=== PATIENT | female | born 1950 | race Two or more races ===

== ENCOUNTER 2022-04-01 06:16 | Day surgery (SDC) | payer OTHER, MEDICAID ==
[~2022-04-01] VITALS: Ht 142.2 cm; Wt 68.0 kg
[2022-04-01] VITALS (7 sets, daily range): BP systolic 126–152; BP diastolic 70–92
[~2022-04-01 06:16] MED LIST: ACET-1080 PO; AMLO-489 PO; CELE100C82 PO; CHOL100079 PO; DISO100C4 PO; GABA100C9 PO; LOSA25TA38 PO; METO25TA5 PO; OMEP-434 PO; OXYB10TA14 PO; POM
[2022-04-01] MEDS ORDERED: fentaNYL CITRATE 100 MCG/2 ML VL ONE (07:34)
[2022-04-01] MEDS ORDERED: MIDAZOLAM HCL 2MG/2ML 2ml VIAL (1mg/ml) ONE (07:35)
[2022-04-01] MEDS ORDERED: LIDOCAINE 2%HCL (LOCAL ANESTH.) INJ 20ML MDV ONE (07:35)
[2022-04-01] MEDS ORDERED: IODIXANOL 320MG/ML 100ML BTL IV ONE (07:35)
[2022-04-01] MEDS ORDERED: SODIUM CHL 0.9% 0 ML ONE (07:36)
[2022-04-01] MEDS ORDERED: ANGIOMAX 250 MG VIAL IV ONE (07:36)
[2022-04-01] MEDS ORDERED: HEPARIN SODIUM (PORCINE) 5000 UNITS/ML 1ML VIAL ONE (07:39)
[2022-04-01] MEDS ORDERED: VERAPAMIL 2.5MG/ML INJ 2ML VIAL IV ONE (07:39)
== END 2022-04-01 10:58 | disposition home or self-care (01) ==
LOC: CATH 06:16
PROVIDERS: ATTEND Internal Medicine Cardiovascular Disease
DX: I25.10 Atherosclerotic heart disease of native coronary artery without angina pectoris (principal); I42.1 Obstructive hypertrophic cardiomyopathy; R94.39 Abnormal result of other cardiovascular function study; R06.09 Other forms of dyspnea; R07.89 Other chest pain; J44.9 Chronic obstructive pulmonary disease, unspecified; I08.3 Combined rheumatic disorders of mitral, aortic and tricuspid valves; Z79.899 Other long term (current) drug therapy; Z79.01 Long term (current) use of anticoagulants; Z98.890 Other specified postprocedural states; Z20.822 Contact with and (suspected) exposure to COVID-19
CPT/HCPCS: 93458; C1887; C1894; J1644; J2250; J3010; Q9967; U0003; 99152; 99153

== ENCOUNTER 2025-02-11 09:32 | Inpatient (IN) | payer OTHER, MEDICAID ==
[2025-02-11] VITALS (8 sets, daily range): BP systolic 151; BP diastolic 112; PULSE 94–110; RESP 17–20; O2SAT 9–99
[~2025-02-11] VITALS: Ht 121.9 cm; Wt 60.0 kg
[~2025-02-11 09:32] MED LIST changes: -AMLO-489 PO; +AMLO1TAB22 PO; +GABA-1308 PO; -GABA100C9 PO; +LOSA-533 PO; -LOSA25TA38 PO
--- NOTE | 2025-02-11 09:59 | ED.PDOC ---
SOB-HPI HPI Comments This is a 74 year old female MAEVEA presenting to the ED with chief complaint of SOB. Patient relays that she has been experiencing constant SOB with associated dry cough, nausea, vomiting, and bilateral leg swelling for the past 3 months. Patient relays that she visited today, but had 911 called due to the symptoms she was presenting with. Patient denies any abdominal pain, fever, chills, chest pain, diarrhea, headache, or syncope. 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 Family History Family History: Reviewed,noncontributory to illness, Family hx of heart magdalena Social History Smoker: Non-Smoker Alcohol: Denies ETOH Use Drugs: Denies Drug Use Lives In: Home Constitutional: denies: chills, diaphoresis, fatigue, fever, malaise, sweats, weakness, others EENTM: denies: blurred vision, double vision, ear bleeding, ear discharge, ear drainage, ear pain, ear ringing, eye pain, eye redness, hearing loss, mouth pain, mouth swelling, nasal discharge, nose bleeding, nose congestion, nose pain, photophobia, tearing, throat pain, throat swelling, voice changes, others Respiratory: reports: cough, shortness of breath; denies: hemoptysis, orthopnea, SOB at rest, SOB with excertion, stridor, wheezing, others Cardiovascular: reports: edema; denies: chest pain, dizzy spells, diaphoresis, Dyspnea on exertion, irregular heart beat, left arm pain, lightheadedness, palpitations, PND, syncope, others Gastrointestinal: reports: nausea, vomiting; denies: abdomen distended, abdominal pain, blood streaked bowels, constipated, diarrhea, dysphagia, difficulty swallowing, hematemesis, melena, poor appetite, poor fluid intake, rectal bleeding, rectal pain, others Genitourinary: denies: abnormal vagina bleeding, burning, dyspareunia, dysuria, flank pain, frequency, hematuria, incontinence, pain, , vagina discharge, urgency, others Neurological: denies: dizziness, fainting, headache, left sided numbness, left sided weakness, numbness, paresthesia, pre-existing deficit, right sided numbness, right sided weakness, seizure, speech problems, tingling, tremors, weakness, others Musculoskeletal: denies: back pain, gout, joint pain, joint swelling, muscle pain, muscle stiffness, neck pain, others Integumetry: denies: bruises, change in color, change in hair/nails, dryness, laceration, lesions, lumps, rash, wounds, others Allergic/Immunocompromised: denies: Difficulty Healing, Frequent Infections, Hives, Itching, others Hematologic/Lymphatic: denies: anemia, blood clots, easy bleeding, easy bruising, swollen glands, others Endocrine: denies: excessive hunger, excessive sweating, excessive thirst, excessive urination, flushing, intolerance to cold, intolerance to heat, unexpla ined weight gain, unexplained weight loss, others Psychiatric: denies: anxiety, bipolar disorder, depression, hopeless, panic disorder, schizophrenia, sleepless, suicidal, others All Other Systems: Reviewed and Negative Physical Exam General Appearance: Moderate Distress HEENT: Normal ENT Inspection, Pharynx Normal, TMs Normal Neck: Full Range of Motion, Non-Tender, Normal, Normal Inspection Respiratory: Chest Non-Tender, Decreased Breath Sounds, No Accessory Muscle Use, Respiratory Distress, Wheezing Cardiovascular: No Edema, No JVD, No Murmur, No Gallop, Normal Peripheral Pulses, Regular Rate/Rhythm Breast Exam: Deferred Gastrointestinal: No Organomegaly, Non Tender, No Pulsatile Mass, Normal Bowel Sounds, Soft Genitalia: Deferred Pelvic: Deferred Rectal: Deferred Extremities: No calf tenderness, Normal capillary refill, Normal inspection, Normal range of motion, Non-tender, No pedal edema Musculoskeletal : Apperance: Normal Neurologic: Alert, development architect II-XII nml as Tested, No Motor Deficits, Normal Affect, Normal Mood, No Sensory Deficits Cerebellar Function: Normal Reflexes: Normal Skin: Dry, Normal Color, Warm Lymphatic: No Adenopathy EKG EKG : Pulse Rate (adult): 108 [address]: Normal Cardiac Rhythm: Afib Block: None Hypertrophy: None ST: Normal Was a procedure done? Was a procedure done?: No Differential Dx Differential Diagnosis: Asthma, Bronchitis, CHF, COPD, Pneumonia X-Ray, Labs, Meds, VS Vital Signs Date Time Temp Pulse Resp B/P (MAP) Pulse Ox O2 Delivery O2 Flow Rate FiO2 02/11/25 11:29 110 17 98 Nasal Cannula* 2 28 02/11/25 10:55 110 17 130/61 (84) 92 02/11/25 10:42 20 97 Nasal Cannula* 2 02/11/25 09:59 108 02/11/25 09:44 98.6 123 20 122/66 (84) 92 98.6 02/11/25 09:40 98.6 123 18 122/66 92 98.6 02/11/25 09:34 108 Lab Test 02/11/25 11:23 Range/Units White Blood Count 16.6 H 4.4-10.8 10^3/uL Red Blood Count 4.28 4.0-5.20 10^6/uL Hemoglobin 12.4 12.2-16.2 g/dL Hematocrit 38.7 36.0-46.0 % Mean Corpuscular Volume 90.6 80.0-100.0 fL Mean Corpuscular Hemoglobin 29.0 28.0-32.0 pg Mean Corpuscular Hemoglobin Concent 32.0 32.0-36.0 g/dL Red Cell Distribution Width 15.6 H 11.8-14.3 % Platelet Count 224 140-450 10^3/uL Mean Platelet Volume 10.2 6.9-10.8 fL Neutrophils (%) (Auto) 80.4 H 37.0-80.0 % Lymphocytes (%) (Auto) 12.1 10.0-50.0 % Monocytes (%) (Auto) 7.4 0.0-12.0 % Eosinophils (%) (Auto) 0.0 0.0-7.0 % Basophils (%) (Auto) 0.1 0.0-2.0 % Neutrophils # (Auto) 13.3 H 1.6-8.6 10 ^3/uL Lymphocytes # (Auto) 2.0 0.4-5.4 10 ^3/uL Monocytes # (Auto) 1.2 0-1.3 10 ^3/uL Eosinophils # (Auto) 0 0-0.8 10 ^3/uL Basophils # (Auto) 0 0-0.2 10 ^3/uL Nucleated Red Blood Cells 0.0 % Sodium Level 143 136-145 mmol/L Potassium Level 4.4 3.5-5.1 mmol/L Chloride Level 109 H 98-107 mmol/L Carbon Dioxide Level 24 20-31 mmol/L Anion Gap 10 5-15 Blood Urea Nitrogen Pending Creatinine Pending Glomerular Filtration Rate Calc Pending BUN/Creatinine Ratio Pending Serum Glucose Pending Calcium Level 8.4 L 8.7-10.4 mg/dL B-Type Natriuretic Peptide Pending Current Medications Medications (Trade) Dose Ordered Sig/Diamond Route Start Time Stop Time Status Last Admin Methylprednisolone Sodium Succinate (Solu Medrol) 125 mg ONCE ONCE IV 02/11/25 10:00 02/11/25 10:05 DC 02/11/25 10:35 Ipratropium [place] (Atrovent Medneb) 1 mg ONCE ONCE N 02/11/25 10:00 02/11/25 10:06 DC 02/11/25 10:42 Albuterol (Ventolin Medneb) 20 mg ONCE ONCE N 02/11/25 10:00 02/11/25 10:06 DC 02/11/25 10:42 IV Hep-Lock was established The patient was given Solu-Medrol 125 mg IV push The patient was given a continuous breathing treatment of albuterol and Atrovent. The patient's CBC shows an elevated white blood cell count of 16.6 The rest of the CBC is within normal limits The chemistry panel is within normal limits. The patient's chest x-ray shows: IMPRESSION: Small right pleural effusion. Cardiomegaly with pulmonary vascular congestion. The BNP is pending The patient is admitted at this time Images Reviewed?: Images reviewed and evaluated by me Time of 1ST Reevaluation: 11:44 Reevaluation 1ST: Unchanged Patient Education/Counseling: Diagnosis, Treatment, Prognosis Family Education/Counseling: No Family Present SEPSIS Sepsis Screen Date sepsis recognized/suspect: Feb 11, 2025 Time Sepsis recognized/suspect: 941 Recent Procedure: No On Antibiotic Therapy: Yes (ROCEPHIN) Respiratory Rate >20: No Heart Rate >90: Yes Temp<36 C (96.8 F) or >38.3 C: No SBP <90 or MAP <65 mmHG: No New Acute Mental Status Change: No Is the patient on CPAP, BIPAP,: No Physician Orders Electrocardigram (02/11/25 09:37) Electrocardigram (02/11/25 10:37) Electrocardigram (02/11/25 12:37) B-Type Natriuretic Peptide (02/11/25 09:57) Med Neb Initial Treatment (02/11/25 09:57) Heplock Iv (02/11/25 09:57) Pulse Oximetry (02/11/25 09:57) Manager Bar (02/11/25 09:57) Blood Pressure (02/11/25 09:57) Chest Two Views Routine (02/11/25 09:57) Basic Metabolic Panel (02/11/25 09:57) Covid19 Antigen Sasha (02/11/25 ) Rapid Influenza A&B (02/11/25 09:57) Vital Signs Date Time Temp Pulse Resp B/P (MAP) Pulse Ox O2 Delivery O2 Flow Rate FiO2 02/11/25 11:29 110 17 98 Nasal Cannula* 2 28 02/11/25 10:55 110 17 130/61 (84) 92 02/11/25 10:42 20 97 Nasal Cannula* 2 02/11/25 09:59 108 02/11/25 09:44 98.6 123 20 122/66 (84) 92 98.6 02/11/25 09:40 98.6 123 18 122/66 92 98.6 02/11/25 09:34 108 Laboratory Tests Test 02/11/25 11:23 White Blood Count 16.6 10^3/uL (4.4-10.8) H Medications Medications Dose Ordered Sig/Diamond Route Start Time Stop Time Status Last Admin Dose Admin Albuterol 20 mg ONCE ONCE N 02/11/25 10:00 02/11/25 10:06 DC 02/11/25 10:42 Ipratropium [place] 1 mg ONCE ONCE N 02/11/25 10:00 02/11/25 10:06 DC 02/11/25 10:42 Methylprednisolone Sodium Succinate 125 mg ONCE ONCE IV 02/11/25 10:00 02/11/25 10:05 DC 02/11/25 10:35 Departure 1 Departure Time of Disposition: 11:45 Impression: Primary Impression: Pleural effusion, right Additional Impressions: COPD exacerbation Pulmonary vascular congestion Disposition: ADMITTED INPATIENT Admit to: Tele Condition: Fair Critical Care Note Critical Care Time?: Yes (45 min-critical care time only) Stability Stability form required: Yes Unstable for transfer: Telemetry monitoring (Telemetry monitoring required), ED Physician Assesment (Clinical assesment) Heart Score Heart Score: Heart Score Response (Comments) Value History Highly Suspicious 2 EKG Repolarization Disturb 1 Age >65 2 Risk Factors >3 or Hx ASHD 2 Troponin Normal limit 0 Total 7 I personally scribed for REECE MAHARAJ MD ([email or web address]) on 02/11/25 at 09:59. Electronically submitted by Nathan Lares ([email or web address]). REECE MAHARAJ MD Feb 11, 2025 09:59
[2025-02-11] MEDS: methylPREDNISolone SOD SUCC 125 MG/2 ML VL IV ONE (10:35)
[2025-02-11] MEDS: IPRATROPIUM BROM 0.5 MG/2.5ML INH SOL HHN ONE (10:42)
[2025-02-11] MEDS: ALBUTEROL SULF 2.5 MG/0.5ML(0.5%) NEB SOLN HHN ONE (10:42)
--- NOTE | 2025-02-11 10:43 | DVH ---
XY CHEST TWO VIEWS ROUTINE, HISTORY: sob COMPARISON: XR CHEST 2 VIEW on DOS: 01/02/25, CT CHEST W on DOS: 12/24/24, XR CHEST 2 VIEW on DOS: 12/24 XR CHEST 2 VIEW on DOS: 01/02/25, CT CHEST W on DOS: 12/24/24, XR CHEST 2 VIEW on DOS: 12/24/24 TECHNICAL DATA: 1 view of the chest was obtained. FINDINGS: Lines and tubes: None Cardiomediastinal silhouette: prominent Pulmonary vasculature: prominent Lung expansion: low Lung airspace: normal Lung interstitium: normal Pleura: Small right pleural effusion. Pneumothorax: no Bones: Unremarkable Other: no IMPRESSION: Small right pleural effusion. Cardiomegaly with pulmonary vascular congestion.
[2025-02-11 11:31] LABS: Hematocrit 38.7 % (36.0-46.0); Hemoglobin 12.4 g/dL (12.2-16.2); Mean Corpuscular Hemoglobin 29.0 pg (28.0-32.0); Mean Corpuscular Volume 90.6 fL (80.0-100.0); Nucleated Red Blood Cells % 0.0 %
[2025-02-11 11:40] LABS: Anion Gap 10 (5-15); Carbon Dioxide 24 mmol/L (20-31); Potassium 4.4 mmol/L (3.5-5.1); Sodium 143 mmol/L (136-145)
[2025-02-11 11:42] LABS: Calcium 8.4 mg/dL (8.7-10.4); Chloride 109 mmol/L (98-107)
[2025-02-11 11:46] LABS: BUN/Creatinine Ratio 18.7 (10.0-20.0); Blood Urea Nitrogen 14 mg/dL (9-23)
[2025-02-11 11:52] LABS: Glucose 121 mg/dL (74-106)
[2025-02-11] MEDS: AMIODARONE HCL (50 MG/ ML) 3 ML VIAL IV ONE (12:14)
[2025-02-11] MEDS: dilTIAZem 25 MG/5 ML VIAL IV ONE (12:22)
[2025-02-11 12:35] LABS: COVID19 ANTIGEN SOFIA FIA NEGATIVE (NEGATIVE)
[2025-02-11] MEDS: DIGOXIN (250MCG/ML) 2 ML AMPULE IV ONE (14:36)
[2025-02-11 16:27] LABS: Base Excess -9.5 mmol/L (-2.0-3.0)
[2025-02-11] MEDS ORDERED: LEVALBUTEROL HCL 1.25 MG/3 ML NEB NEB ONE (16:30)
[2025-02-11] MEDS: LEVALBUTEROL HCL 1.25 MG/3 ML NEB ONE (16:57)
[2025-02-11] MEDS ORDERED: HYDROcodone-ACET 5/325MG TAB PO PRN (17:15)
[2025-02-11] MEDS ORDERED: MORPHINE SULFATE INJ 2 MG/ml SYRG IV PRN ×2 (17:15)
[2025-02-11] MEDS ORDERED: ONDANSETRON HCL 4 MG/2 ML VIAL IV PRN (17:15)
[2025-02-11] MEDS ORDERED: ACETAMINOPHEN 325 MG TAB PO PRN (17:15)
[2025-02-11] MEDS ORDERED: NITROGLYCERIN 0.4 MG SL TAB SL PRN (17:15)
[2025-02-11] MEDS: ENOXAPARIN SOD 60 MG/0.6 ML SYRINGE SC SCH (18:05)
[2025-02-11] MEDS: PIPERACILLIN-TAZOB 3.375GM 100 ML IV ONE (18:05)
[2025-02-11] MEDS: FUROSEMIDE 20 MG/2 ML VIAL IV SCH (18:07)
[2025-02-11] MEDS: IPRATROPIUM BROM 0.5 MG/2.5ML INH SOL NEB SCH (18:23)
[2025-02-11] MEDS: ALBUTEROL SULF 2.5 MG/0.5ML(0.5%) NEB SOLN NEB SCH (18:24)
[2025-02-11 21:11] LABS: Urine Protein, UAD TRACE (Negative)
[2025-02-11] MEDS: METOPROLOL TARTRATE 25 MG TAB PO SCH (22:00)
--- NOTE | 2025-02-11 23:07 | DVHINCON2 ---
Date of service: Feb 11, [address] De La Fuente Reason for Consultation Acute on chronic hypoxic respiratory failure, COPD exacerbation, and pleural effusion History of Present Illness A 74-year-old woman with past medical history of COPD and hypertension who presents to ED today with complaints of increased shortness of breath. Patient additionally c/o nausea, vomiting, and bilateral leg swelling worsening over the previous 3 months. On arrival to the emergency department, patient is noted to be in AFib with RVR. WBC 16.6, H&H 12.4/30.7, PLT 224. Na 143, K4.4, BUN 14, creatinine 0.75, BNP 521. Viral swabs negative. UA negative. CXR showed small right pleural effusion and cardiomegaly with pulmonary vascular congestion. While in the emergency department patient had a hypoxic episode with oxygen saturation staying in the high 70s, prompting the use of BiPAP. Patient was admitted for further care. Pulmonary consultation is requested for evaluation and management d/t acute on chronic hypoxic respiratory failure, COPD exacerbation and pleural effusion. Review of Systems: 14-point review of systems negative unless otherwise noted above. Past Medical History: COPD and hypertension Past Surgical History: None Medications: Reviewed. Allergies: No known drug allergies. Family History: No family history of premature CAD. No family history of lung disorders. Social History: Nonsmoker. No alcohol or illicit drug use. Allergies: Coded Allergies: NO KNOWN ALLERGIES (Unverified , 02/11/25) Home Meds Reported Medications Patients Own Medication (PATIENTS OWN MEDICATION) . PTS OWN MED-OBTAIN FROM PT AND SEND TO RX DRUG: FREQ: RX# EXP: DATE DISP: TECH: RPH: 03/30/22 Celecoxib (Celebrex) 100 Mg Cap, 100 MG PO DAILY for PAIN, MG 03/30/22 Oxybutynin Chloride (Ditropan Xl) 10 Mg Tab, 10 MG PO DAILY for HYPERACTIVE BLADDER, TAB 03/30/22 Cholecalciferol (VITAMIN D3) 1,000 Unit Chw, 1000 UNIT PO DAILY for SUPPLEMENT, TAB.CHEW 03/30/22 Disopyramide Phosphate (Disopyramide Phosphate) 100 Mg Cap, 100 MG PO DAILY for ARRYTHMIA, CAP 03/30/22 Acetaminophen (Tylenol 8 Hour Arthritis) 650 Mg Tab, 1300 MG PO DAILY for ATHRITIS, TAB 03/30/22 Patients Own Medication (PATIENTS OWN MEDICATION) ., for ALLERGIES PTS OWN MED-OBTAIN FROM PT AND SEND TO RX DRUG: FREQ: RX# EXP: DATE DISP: TECH: RPH: 03/30/22 Gabapentin (Gabapentin) 100 Mg Cap, 100 MG PO BID for NEUROPATHY, MG 03/30/22 Metoprolol Tartrate (Metoprolol Tartrate) 25 Mg Tab, 25 MG PO DAILY for HTN for 30 Days, MG 03/30/22 Amlodipine Besylate (Amlodipine Besylate) 5 Mg Tab, 5 MG PO DAILY for HTN, MG 03/30/22 Losartan Potassium (Losartan Potassium) 25 Mg Tab, 25 MG PO DAILY for HTN for 30 Days, MG 03/30/22 Omeprazole Magnesium (Omeprazole) 20 Mg Tab, 40 MG PO DAILY for GERD, TAB 03/30/22 Current Medications Current Medications Medications (Trade) Dose Ordered Sig/Diamond Route PRN Reason Start Time Stop Time Status Last Admin Acetaminophen/ Hydrocodone Bitart (Eastern 5/325MG Tab) 1 tab Q4HP PRN PO MODERATE PAIN (4-6 PAIN SCALE) 02/11/25 17:15 Ondansetron HCl (Zofran) 4 mg Q4HP PRN IV NAUSEA / VOMITING 02/11/25 17:15 Acetaminophen (Tylenol Tablet) 650 mg Q6HP PRN PO PAIN SCALE 1-3 OR TEMP>100.4 02/11/25 17:15 Morphine Sulfate 2 mg Q4HPRN PRN IV SEVERE PAIN (7-10 PAIN SCALE) 02/11/25 17:15 Nitroglycerin (Ntrostat Sublingual) 0.4 mg Q5MINP PRN SL FOR CHEST PAIN 02/11/25 17:15 Morphine Sulfate 2 mg Q30M PRN IV FOR CHEST PAIN 02/11/25 17:15 Metoprolol Tartrate (Lopressor Tablet) 25 mg BID PO 02/11/25 22:00 02/11/25 22:00 Enoxaparin Sodium (Lovenox) 60 mg Q12HR SC 02/11/25 17:32 02/11/25 18:05 Piperacillin Sod/ Tazobactam Sod 100 ml @ 25 mls/hr Q8HR IV 02/12/25 00:00 Albuterol (Ventolin Medneb) 2.5 mg Q4HWA NEB 02/11/25 18:00 02/11/25 22:37 Ipratropium [place] (Atrovent Medneb) 0.5 mg Q4HWA NEB 02/11/25 18:00 02/11/25 22:36 Furosemide (Lasix Injection) 20 mg BIDD IV 02/11/25 18:00 02/11/25 18:07 Vital Signs Vital Signs Date Time Temp Pulse Resp B/P (MAP) Pulse Ox O2 Delivery O2 Flow Rate FiO2 02/11/25 22:25 109 92 Nasal BiPAP Mask 100 02/11/25 22:10 20 02/11/25 22:00 155/56 02/11/25 20:40 2 02/11/25 19:59 98.4 98.4 Physical Exam Gen.: Patient lying in bed in no apparent distress. On supplemental oxygen. Head: Normocephalic, atraumatic. Eyes: EOMI/PERRLA. Ears: Normal hearing. Normal anatomy. Neck/trachea: Trachea midline, supple. Nose: Normal external anatomy. Mouth: Moist mucous membranes. Chest: Decreased air entry bilaterally. No wheezing or rhonchi. Cardiovascular: Positive S1, positive S2. Regular rate and rhythm. Abdomen: Positive bowel sounds in all 4 quadrants. Soft, non-tender, non- distended. : Deferred. Rectal: Deferred. Skin: Warm, dry. Intact. Extremities: 2+ radial pulses bilaterally. No lower extremity edema. Neuro: Awake, alert, oriented x3. No gross motor or sensory deficits. Cranial nerves II through XII intact. Gait not assessed. Labs/Diagnostic Data Labs Test 02/11/25 16:20 02/11/25 11:23 02/11/25 10:55 02/11/25 10:31 Range/Units Blood Gas Specimen Type Arterial Blood Gas Sample Site Right radial Blood Gas Patient Temperature 37.0 Arterial Blood Date Drawn [id number] Arterial Blood pH 7.333 L 7.350-7.450 Arterial Blood Partial Pressure CO2 28.7 L 32.0-45.0 mmHg Arterial Blood Partial Pressure O2 133.2 H 83.0-108.0 mmHg Arterial Blood HCO3 14.9 L 21.0-28.0 mmol/L Arterial Blood Oxygen Saturation 99.0 H 94.0-98.0 % Arterial Blood Base Excess -9.5 L -2.0-3.0 mmol/L Arterial Blood Oxyhemoglobin 97.6 94.0-98.0 % Arterial Blood Carboxyhemoglobin 1.1 0.5-1.5 % Arterial Blood Methemoglobin 0.3 0.0-1.5 % Vince Test Yes Blood Gas Total Hemoglobin 13.80 12.0-16.0 g/dL Blood Gas Liter Flow 6.00 Blood Gas Modality Nasal cannula FiO2 % 44.0 White Blood Count 16.6 H 4.4-10.8 10^3/uL Red Blood Count 4.28 4.0-5.20 10^6/uL Hemoglobin 12.4 12.2-16.2 g/dL Hematocrit 38.7 36.0-46.0 % Mean Corpuscular Volume 90.6 80.0-100.0 fL Mean Corpuscular Hemoglobin 29.0 28.0-32.0 pg Mean Corpuscular Hemoglobin Concent 32.0 32.0-36.0 g/dL Red Cell Distribution Width 15.6 H 11.8-14.3 % Platelet Count 224 140-450 10^3/uL Mean Platelet Volume 10.2 6.9-10.8 fL Neutrophils (%) (Auto) 80.4 H 37.0-80.0 % Lymphocytes (%) (Auto) 12.1 10.0-50.0 % Monocytes (%) (Auto) 7.4 0.0-12.0 % Eosinophils (%) (Auto) 0.0 0.0-7.0 % Basophils (%) (Auto) 0.1 0.0-2.0 % Neutrophils # (Auto) 13.3 H 1.6-8.6 10 ^3/uL Lymphocytes # (Auto) 2.0 0.4-5.4 10 ^3/uL Monocytes # (Auto) 1.2 0-1.3 10 ^3/uL Eosinophils # (Auto) 0 0-0.8 10 ^3/uL Basophils # (Auto) 0 0-0.2 10 ^3/uL Nucleated Red Blood Cells 0.0 % Sodium Level 143 136-145 mmol/L Potassium Level 4.4 3.5-5.1 mmol/L Chloride Level 109 H 98-107 mmol/L Carbon Dioxide Level 24 20-31 mmol/L Anion Gap 10 5-15 Blood Urea Nitrogen 14 9-23 mg/dL Creatinine 0.75 0.550-1.02 mg/dL Glomerular Filtration Rate Calc 85 >90 mL/min BUN/Creatinine Ratio 18.7 10.0-20.0 Serum Glucose 121 H 74-106 mg/dL Calcium Level 8.4 L 8.7-10.4 mg/dL B-Type Natriuretic Peptide 521.10 0-100 pg/mL Influenza Type A Antigen Negative Negative Influenza Type B Antigen Negative Negative SARS-CoV-2 Antigen (Rapid) Negative NEGATIVE Urine Color Yellow Yellow Urine Clarity Clear Clear Urine pH 5.5 5.0-9.0 Urine Specific [place] 1.026 1.001-1.035 Urine Protein Trace H Negative Urine Ketones Negative Negative Urine Blood Negative Negative /uL Urine Nitrite Negative Negative Urine Bilirubin Negative Negative Urine Urobilinogen Normal Negative mg/dL Urine Leukocyte Esterase Negative Negative /uL Urine RBC 1 0 - 4 /hpf Urine Microscopic WBC 2 0-5 /HPF Urine Squamous Epithelial Cells Few <5 /hpf Urine Bacteria None seen None Seen /hpf Urine Hyaline Casts Few 0 - 2 /lpf Urine Mucus Few None Seen Urine Glucose Normal Normal mg/dL Assessment Impression: Acute on chronic hypoxic respiratory failure Acute COPD exacerbation Acute CHF exacerbation Pleural effusion, right Atelectasis Pulmonary vascular congestion Leukocytosis Plan: Supplemental oxygen Titrate to keep O2 sats above 92%. CXR reviewed, demonstrates small right pleural effusion. Cardiomegaly with pulmonary vascular congestion. Continue bronchodilators. Continue antibiotics Monitor WBC Incentive spirometry for atelectasis Follow up Cardiology recommendations Blood pressure control Maintain euvolemia Monitor renal function. Monitor electrolytes. Supplement as necessary. Monitor ins and outs. DVT prophylaxis - Lovenox SC. Prognosis: Poor given patient's multiple co-morbidities. Rest of plan per hospitalist and other consultants. Thank you, Dr. De La Fuente, for allowing me to participate in this patient's care. Further recommendations will depend on the patient's clinical course. Please do not hesitate to contact me if you have any questions or concerns. This medical document was created using an electronic medical record system with [employer] system. Although these documentations are being carefully reviewed, there may still be some phonetic and typographical changes. The errors are purely typographical, due to imperfection on the software program, and do not reflect any compromise in the patient's medical care. Plan discussed with: Other (RN/Dr. De La Fuente) PAPO PALOMINO MD Feb 11, 2025 23:07
[2025-02-11] MEDS: LEVALBUTEROL HCL 1.25 MG/3 ML NEB NEB ONE (23:21)
[2025-02-12] VITALS (13 sets, daily range): PULSE 65–96; RESP 16–28; O2SAT 94–100
[2025-02-12] MEDS: PIPERACILLIN-TAZOB 3.375GM 100 ML IV SCH
--- NOTE | 2025-02-12 01:11 | DVHHP2 ---
History of Present Illness Reason for Visit: Shortness of breath History of Present Illness 74-year-old female with past medical history of COPD, hypertension presents with complaints increased shortness of breath. Also endorses nausea, vomiting, bilateral leg swelling worsening over the previous 3 months. On arrival to the emergency department patient is noted to be in AFib RVR. W60.6, H&H 12.4/30.7, PLT 224. Na 143, K4.4, BUN 14, creatinine 0.75, BNP 521. Viral swabs negative. UA negative. CXR interpreted per the radiologist read small right pleural effusion. Cardiomegaly with pulmonary vascular congestion. As such while the patient was in the emergency department she did begin to experience a hypoxic episode with oxygen saturation staying in the high 70s, prompting the use of BiPAP. This time patient denies fevers, chills, dizziness, syncope, chest pain, nausea, vomiting, abdominal pain,. Cardiovascular: HTN Pulmonary: COPD Smoke: No ALCOHOL: none Drugs: None Lives: with Family Review of Systems Constitutional: Yes: Malaise; No: Fever, Chills, Sweats, Weakness, Other Eyes: No: Pain, Vision change, Conjunctivae inflammation, Eyelid inflammation, Other, Redness ENT: No: Ear pain, Ear discharge, Nose pain, Nose discharge, Nose congestion, Mouth pain, Mouth swelling, Throat pain, Throat swelling, Other Respiratory: Cough, Shortness of breath, SOB with excertion; No: Dry, Wheezing, Hemoptysis, Pleuritic Pain, Sputum, Wheezing, Other Cardiovascular: Edema; No: Chest Pain, Palpitations, Orthopnea, Paroxysmal Noc. Dyspnea, Lt Headedness, Other Gastrointestinal: No: Nausea, Vomiting, Abdominal Pain, Diarrhea, Constipation, Melena, Hematochezia, Other Genitourinary: No Dysuria, No Frequency, No Incontinence, No Hematuria, No Retention, No Other Musculoskeletal: No: other, neck pain, shoulder pain, arm pain, back pain, hand pain, leg pain, foot pain Skin: No: Rash, Lesions, Jaundice, Bruising, Other Neurological: No: Weakness, Numbness, Incoordination, Change in speech, Confusion, Seizures, Other Allergies: Coded Allergies: NO KNOWN ALLERGIES (Unverified , 02/11/25) Medications Current Medications Medications Dose Ordered Sig/Diamond Route Start Time Stop Time Status Last Admin Dose Admin Acetaminophen/ Hydrocodone Bitart 1 tab Q4HP PRN PO 02/11/25 17:15 Ondansetron HCl 4 mg Q4HP PRN IV 02/11/25 17:15 Acetaminophen 650 mg Q6HP PRN PO 02/11/25 17:15 Morphine Sulfate 2 mg Q4HPRN PRN IV 02/11/25 17:15 Nitroglycerin 0.4 mg Q5MINP PRN SL 02/11/25 17:15 Morphine Sulfate 2 mg Q30M PRN IV 02/11/25 17:15 Metoprolol Tartrate 25 mg BID PO 02/11/25 22:00 02/11/25 22:00 25 MG Enoxaparin Sodium 60 mg Q12HR SC 02/11/25 17:32 02/11/25 18:05 60 MG Piperacillin Sod/ Tazobactam Sod 100 ml @ 25 mls/hr Q8HR IV 02/12/25 00:00 Albuterol 2.5 mg Q4HWA NEB 02/11/25 18:00 02/11/25 22:37 2.5 MG Ipratropium [place] 0.5 mg Q4HWA NEB 02/11/25 18:00 02/11/25 22:36 0.5 MG Furosemide 20 mg BIDD IV 02/11/25 18:00 02/11/25 18:07 20 MG Exam Vital Signs Vital Signs Date Time Temp Pulse Resp B/P (MAP) Pulse Ox O2 Delivery O2 Flow Rate FiO2 02/12/25 00:00 92 26 146/87 (106) 98 02/11/25 22:25 Nasal BiPAP Mask 100 02/11/25 20:40 2 02/11/25 19:59 98.4 98.4 General Appearance: Alert, Oriented X3, Cooperative, moderate distress HEENT: Atraumatic, PERRLA, EOMI Respiratory: Other (Tolerating BiPAP) Cardiovascular: Normal S1, Normal S2, Other (AFib) Abdominal: Soft, No tenderness Extremities: Other (BLE edema 2+) Neuro: Normal speech, Strength at 5/5 X4 ext Psych/Mental Status: Mental status NL, Mood NL Labs/Xrays Labs Test 02/11/25 16:20 02/11/25 11:23 02/11/25 10:55 02/11/25 10:31 Range/Units Blood Gas Specimen Type Arterial Blood Gas Sample Site Right radial Blood Gas Patient Temperature 37.0 Arterial Blood Date Drawn [id number] Arterial Blood pH 7.333 L 7.350-7.450 Arterial Blood Partial Pressure CO2 28.7 L 32.0-45.0 mmHg Arterial Blood Partial Pressure O2 133.2 H 83.0-108.0 mmHg Arterial Blood HCO3 14.9 L 21.0-28.0 mmol/L Arterial Blood Oxygen Saturation 99.0 H 94.0-98.0 % Arterial Blood Base Excess -9.5 L -2.0-3.0 mmol/L Arterial Blood Oxyhemoglobin 97.6 94.0-98.0 % Arterial Blood Carboxyhemoglobin 1.1 0.5-1.5 % Arterial Blood Methemoglobin 0.3 0.0-1.5 % Vicne Test Yes Blood Gas Total Hemoglobin 13.80 12.0-16.0 g/dL Blood Gas Liter Flow 6.00 Blood Gas Modality Nasal cannula FiO2 % 44.0 White Blood Count 16.6 H 4.4-10.8 10^3/uL Red Blood Count 4.28 4.0-5.20 10^6/uL Hemoglobin 12.4 12.2-16.2 g/dL Hematocrit 38.7 36.0-46.0 % Mean Corpuscular Volume 90.6 80.0-100.0 fL Mean Corpuscular Hemoglobin 29.0 28.0-32.0 pg Mean Corpuscular Hemoglobin Concent 32.0 32.0-36.0 g/dL Red Cell Distribution Width 15.6 H 11.8-14.3 % Platelet Count 224 140-450 10^3/uL Mean Platelet Volume 10.2 6.9-10.8 fL Neutrophils (%) (Auto) 80.4 H 37.0-80.0 % Lymphocytes (%) (Auto) 12.1 10.0-50.0 % Monocytes (%) (Auto) 7.4 0.0-12.0 % Eosinophils (%) (Auto) 0.0 0.0-7.0 % Basophils (%) (Auto) 0.1 0.0-2.0 % Neutrophils # (Auto) 13.3 H 1.6-8.6 10 ^3/uL Lymphocytes # (Auto) 2.0 0.4-5.4 10 ^3/uL Monocytes # (Auto) 1.2 0-1.3 10 ^3/uL Eosinophils # (Auto) 0 0-0.8 10 ^3/uL Basophils # (Auto) 0 0-0.2 10 ^3/uL Nucleated Red Blood Cells 0.0 % Sodium Level 143 136-145 mmol/L Potassium Level 4.4 3.5-5.1 mmol/L Chloride Level 109 H 98-107 mmol/L Carbon Dioxide Level 24 20-31 mmol/L Anion Gap 10 5-15 Blood Urea Nitrogen 14 9-23 mg/dL Creatinine 0.75 0.550-1.02 mg/dL Glomerular Filtration Rate Calc 85 >90 mL/min BUN/Creatinine Ratio 18.7 10.0-20.0 Serum Glucose 121 H 74-106 mg/dL Calcium Level 8.4 L 8.7-10.4 mg/dL B-Type Natriuretic Peptide 521.10 0-100 pg/mL Influenza Type A Antigen Negative Negative Influenza Type B Antigen Negative Negative SARS-CoV-2 Antigen (Rapid) Negative NEGATIVE Urine Color Yellow Yellow Urine Clarity Clear Clear Urine pH 5.5 5.0-9.0 Urine Specific [place] 1.026 1.001-1.035 Urine Protein Trace H Negative Urine Ketones Negative Negative Urine Blood Negative Negative /uL Urine Nitrite Negative Negative Urine Bilirubin Negative Negative Urine Urobilinogen Normal Negative mg/dL Urine Leukocyte Esterase Negative Negative /uL Urine RBC 1 0 - 4 /hpf Urine Microscopic WBC 2 0-5 /HPF Urine Squamous Epithelial Cells Few <5 /hpf Urine Bacteria None seen None Seen /hpf Urine Hyaline Casts Few 0 - 2 /lpf Urine Mucus Few None Seen Urine Glucose Normal Normal mg/dL SEPSIS Sepsis Screen Date sepsis recognized/suspect: Feb 11, 2025 Time Sepsis recognized/suspect: 1648 Recent Procedure: No On Antibiotic Therapy: No Respiratory Rate >20: No Heart Rate >90: Yes Temp<36 C (96.8 F) or >38.3 C: No SBP <90 or MAP <65 mmHG: No New Acute Mental Status Change: No Is the patient on CPAP, BIPAP,: No Physician Orders Admit (02/11/25 17:06) Code Status (02/11/25 17:06) 2 Gm Sodium Diet (02/11/25 Dinner) Hydrocodone-Acet 5/325mg Tab ([place] 5/32 (02/11/25 17:15) Ondansetron Hcl (Zofran) (02/11/25 17:15) Fall Risk Precautions In Place QSHIFT (02/11/25 17:06) Complete Blood Count (02/12/25 04:00) Comprehensive Metabolic Panel (02/12/25 04:00) Pt Request For Service (02/11/25 17:06) Echo 2d Mode Cardiac Dop (02/11/25 17:06) Condition: Stable (02/11/25 17:06) Acetaminophen Tablet (Tylenol Tablet) (02/11/25 17:15) Morphine Sulfate Injection (02/11/25 17:15) Nitroglycerin Sublingual (Ntrostat Subli (02/11/25 17:15) Morphine Sulfate Injection (02/11/25 17:15) Stat Ekg For Chest Pain (02/11/25 17:06) Notify Md Of Changes From Base (02/11/25 17:06) Plant Safety Leader For 24 Hours (02/11/25 17:06) Emergency Dysrhythmia Protocol (02/11/25 17:06) Rhythm Strips Once Every Shift (02/11/25 17:06) Oxygen By Nasal Cannula (02/11/25 17:06) * Cardiology Consult (02/11/25 17:06) Metoprolol Tartrate Tablet (Lopressor Ta (02/11/25 22:00) Albuterol Medneb (Ventolin Medneb) (02/11/25 18:00) Ipratropium Medneb (Atrovent Medneb) (02/11/25 18:00) Furosemide Injection (Lasix Injection) (02/11/25 18:00) Enoxaparin Sodium (Lovenox) (02/11/25 17:32) Piperacillin-Tazob 3.375gm (Zosyn 3.375g (02/12/25 00:00) Blood Culture (02/11/25 19:55) *Consult / (02/11/25 23:04) BIPAP (02/12/25 00:04) Vital Signs Date Time Temp Pulse Resp B/P (MAP) Pulse Ox O2 Delivery O2 Flow Rate FiO2 02/12/25 00:00 92 26 146/87 (106) 98 02/11/25 23:30 88 28 142/71 (94) 98 02/11/25 23:21 93 139/66 02/11/25 23:00 100 35 139/66 (90) 98 02/11/25 23:00 139/66 02/11/25 22:56 90 18 155/56 (89) 99 02/11/25 22:25 109 92 Nasal BiPAP Mask 100 02/11/25 22:10 95 20 99 02/11/25 22:00 77 16 147/72 (97) 98 02/11/25 22:00 94 18 89 02/11/25 22:00 110 155/56 02/11/25 22:00 147/72 02/11/25 21:00 127/61 02/11/25 21:00 94 35 127/61 (83) 97 02/11/25 20:40 97 17 98 Nasal Cannula* 2 28 02/11/25 20:30 101 32 132/56 (81) 98 02/11/25 20:00 92 02/11/25 20:00 161/65 02/11/25 19:59 98.4 120 38 161/65 (97) 97 98.4 02/11/25 19:00 111 42 156/61 (92) 92 02/11/25 19:00 156/61 02/11/25 18:54 94 20 151/112 9 4.0 44 02/11/25 18:20 95 20 99 02/11/25 18:10 94 18 99 02/11/25 18:07 151/112 02/11/25 18:00 87 17 151/112 (125) 97 02/11/25 18:00 151/112 02/11/25 17:47 87 35 150/65 (93) 94 02/11/25 17:30 142/75 02/11/25 17:30 98 28 142/75 (97) 93 Medications Medications Dose Ordered Sig/Diamond Route Start Time Stop Time Status Last Admin Dose Admin Albuterol 2.5 mg Q4HWA NEB 02/11/25 18:00 02/11/25 22:37 2.5 MG Digoxin 500 mcg ONCE ONCE IV 02/11/25 14:30 02/11/25 14:38 DC 02/11/25 14:36 500 MCG Diltiazem HCl 125 ml @ 5 mls/hr Q24H ONCE IV 02/11/25 13:00 02/12/25 12:59 02/11/25 13:03 5 MLS/HR Enoxaparin Sodium 60 mg Q12HR SC 02/11/25 17:32 02/11/25 18:05 60 MG Furosemide 20 mg BIDD IV 02/11/25 18:00 02/11/25 18:07 20 MG Ipratropium [place] 0.5 mg Q4HWA NEB 02/11/25 18:00 02/11/25 22:36 0.5 MG Levalbuterol HCl 1.25 mg STK-MED ONCE .ROUTE 02/11/25 16:30 02/11/25 16:27 DC 02/11/25 16:57 1.25 MG Metoprolol Tartrate 25 mg BID PO 02/11/25 22:00 02/11/25 22:00 25 MG Piperacillin Sod/ Tazobactam Sod 100 ml @ 100 mls/hr ONCE ONCE IV 02/11/25 17:45 02/11/25 18:44 DC 02/11/25 18:05 100 MLS/HR Assessment/Plan Assessment/Plan Acute on chronic respiratory failure with hypoxia Acute chronic COPD exacerbation Acute CHF exacerbation A fib RVR Leukocytosis Plan Admit, SARA Cardiology consult. Echocardiogram. Diurese with Lasix. Continue Diltiazem gtt. Continue home medication. Pulmonology consult. Bronchodilators. Supplemental O2 to maintain oxygen saturation 90 to 92%. As needed BiPAP. Monitor BMP. Correct electrolytes as needed. Blood cultures pending. Broad-spectrum IVABX. GI PPX Protonix / DVTPPX therapeutic Lovenox. Plan discussed with: Patient My Orders Orders - ALEXYS ANDERSON NP Procedure Category Date Status Time Blood Culture [place] 02/11/25 In Process 19:55 *Consult CONS 02/11/25 Transmitted / 23:04 BIPAP RT 02/12/25 Logged 00:04 Date of Service: Feb 12, 2025 Billing Provider: NATHALIA VALDEZ MD Common Visit Codes: NOT BILLABLE ALEXYS ANDERSON NP Feb 12, 2025 01:11
[2025-02-12 07:26] LABS: Hematocrit 43.7 % (36.0-46.0); Hemoglobin 13.9 g/dL (12.2-16.2); Mean Corpuscular Hemoglobin 29.8 pg (28.0-32.0); Mean Corpuscular Volume 93.6 fL (80.0-100.0); Nucleated Red Blood Cells % 0.1 %
[2025-02-12 07:43] LABS: Albumin 4.3 g/dL (3.2-4.8); Alkaline Phosphatase 59 U/L (46-116); Anion Gap 10 (5-15); BUN/Creatinine Ratio 14.4 (10.0-20.0); Blood Urea Nitrogen 19 mg/dL (9-23); Carbon Dioxide 21 mmol/L (20-31); Chloride 107 mmol/L (98-107); Sodium 138 mmol/L (136-145); Total Protein 6.8 g/dL (5.7-8.2)
[2025-02-12 07:44] LABS: Bilirubin, Total 0.5 mg/dL (0.2-1.0)
[2025-02-12 07:52] LABS: Alanine Aminotransferase 50 U/L (7-40); Calcium 8.7 mg/dL (8.7-10.4); Glucose 148 mg/dL (74-106); Potassium 5.4 mmol/L (3.5-5.1)
--- NOTE | 2025-02-12 13:25 | ECG ---
[facility] Test Date: 2025-02-12 Test Time: 02:03:38 Pat Name: NEFTALI COYNE Department: [facility] ED Patient ID: [facility]-[id number] Room: [address] [place] [address] A Gender: F Healthcare Analyst: MARCO A : 1950 Requested By: REECE MAHARAJ Order Number: [id number] Reading MD: Lemuel Tilley Measurements Intervals [place] Rate: 56 P: 0 IN: 0 QRS: 89 QRSD: 83 T: 111 QT: 602 QTc: 582 Interpretive Statements Atrial fibrillation Borderline right axis deviation Borderline T abnormalities, lateral leads Prolonged QT interval Electronically Signed On 02-13-2025 17:02:06 PDT by Lemuel Tilley Please click the below link to view image of tracing.
--- NOTE | 2025-02-12 13:33 | DVHSR ---
APPROVED REPORT EXAM: LIMITED Two-dimensional and M-mode echocardiogram with Doppler and color Doppler. Blood Pressure: 111/66 mmHg INDICATION Atrial Fibrillation w/ RVR RISK FACTORS Obesity: Height: 4', Weight: 132 DIMENSIONS LVDd3.6 (3.8-5.7cm)LA (2D)4.9 (1.9-4.0cm)Aortic Root2.8 (2.0-3.7cm) LVDs2.1 (2.5-4.0cm)LA (MM) (1.9-4.0cm)Aortic Cusp Exc1.6 (1.5-2.0cm) EF (%) 75.0 (55-70%)Rt. Atrium4.5 (1.9-4.0cm)Asc. Aorta cm IVSd1.9 (0.7-1.1cm)RV (D) (1.8-2.4cm) PWd0.9 (0.7-1.1cm) Mitral Valve MitralMitral Stenosis E wave1.40m/sMV Mean GR.mmHg A wave0.40m/sMV Peak GR.mmHg E/A ratio3.52D MVAcm2 Aortic Valve Aortic ValveAortic Stenosis V1m/Abigail Mean GR.26mmHg V23.60m/Abigail Peak GR.53mmHg LVOT Diameter2.1 (1.8-2.4cm)Doppler AVAcm2 AI P 1/2 Rxlc744.12ms Pulmonic Valve V21.00m/s Tricuspid Valve TR Velocity3.70m/s [id number] Other Information Quality : Technically LimitedRhythm : Atrial Fibrillation Technically limited study due to body habitus and position, patient is sitting up due to SOB and ang led to the right. Conclusion There is severe left ventricular hypertrophy Left ventricular systolic function is preserved Ejection fraction is estimated at 70% There is left ventricular outflow tract obstruction Left atrium was dilated Aortic valve is sclerotic without evidence of stenosis There is [id number] aortic regurgitation There is moderate severe mitral regurgitation There is lovz-zh-qurmxebk tricuspid regurgitation There is mild pulmonary hypertension There is no pericardial effusion
--- NOTE | 2025-02-12 13:59 | ECG ---
[facility] Test Date: 2025-02-11 Test Time: 12:05:54 Pat Name: NEFTALI COYNE Department: ER Room: [address] [place] [address] A Gender: F Medical And Scientific Illustrator: SHAYE : 1950 Requested By: REECE MAHARAJ Order Number: [id number] Reading MD: Lemuel Tilley Measurements Intervals [place] Rate: 164 P: 0 [place]: 0 QRS: 98 QRSD: 88 T: -49 QT: 293 QTc: 484 Interpretive Statements Atrial fibrillation with rapid V-rate Right axis deviation Repolarization abnormality, prob rate related Electronically Signed On 02-13-2025 17:01:10 PDT by Lemuel Tilley Please click the below link to view image of tracing.
--- NOTE | 2025-02-12 14:20 | DVHINCON2 ---
DATE OF CONSULTATION: 02/12/2025 CARDIOLOGY CONSULTATION REFERRING PHYSICIAN: Jaime De La Fuente MD. CONSULTING PHYSICIAN: Carol Yap MD INDICATION: . HISTORY OF PRESENT ILLNESS: The patient is a 74-year-old female with history of hypertension, hypertrophic cardiomyopathy, COPD, who was sent to the hospital by urgent care. The patient was noted to be in AFib with RVR. After presentation, the patient was noted to be hypoxic. The patient was initially put on amiodarone. Currently, heart rate has been controlled. Heart rate in the 70s. The patient states that she feels much better now. Denies any chest pain. PAST MEDICAL HISTORY: Hypertension. MEDICATIONS: Per med rec. ALLERGIES: No known drug allergies. PHYSICAL EXAMINATION: GENERAL: Alert and awake, in no form of cardiopulmonary distress. VITAL SIGNS: Blood pressure 105/59, pulse 65 per minute, saturation 97%. HEENT: No carotid bruits. No jugular venous distention. CHEST: Bilateral air entry. CARDIOVASCULAR: Submucosal and palpable. Normal S1, S2. EXTREMITIES: No peripheral edema. DIAGNOSTIC DATA: White count 23, hemoglobin 13, platelets 181. Sodium 138, potassium 5.4, creatinine 1.3, BNP is 521. ASSESSMENT: * AFib with RVR, currently controlled. * CHF. * Cardiomyopathy. * History of hypertension. * Severe COPD. RECOMMENDATIONS: * The patient needs long-term anticoagulation therapy for stroke risk reduction. * Start Eliquis 5 mg twice daily. * Discontinue aspirin once on Eliquis. * Continue beta-funmilayo. * Monitor electrolytes. * ____. * Continue telemetry monitoring for now. Thank you for allowing me to participate in the care of this patient. MD ZAC Da Silva/HOMERO/NAOMI TID: [id number] RECEIPT: [id number]
--- NOTE | 2025-02-12 17:02 | DVHPN2 ---
Subjective Patient denies any shortness of breath chest pain. On IV amiodarone drip. Changes from previous H/P or p: No Changes Eyes: No Pain, No Vision change, No Conjunctivae inflammation, No Eyelid inflammation, No Other, No Redness ENT: No Ear pain, No Ear discharge, No Nose pain, No Nose discharge, No Nose congestion, No Mouth pain, No Mouth swelling, No Throat pain, No Throat swelling, No Other Cardiovascular: No Chest Pain, No Palpitations, No Orthopnea, No Paroxysmal Noc. Dyspnea; Edema; No Lt Headedness, No Other Respiratory: Cough; No Dry; Shortness of breath, SOB with excertion; No Wheezing, No Hemoptysis, No Pleuritic Pain, No Sputum, No Other Gastrointestinal: No Nausea, No Vomiting, No Abdominal Pain, No Diarrhea, No Constipation, No Melena, No Hematochezia, No Other Genitourinary: No Dysuria, No Frequency, No Incontinence, No Hematuria, No Retention, No Other Musculoskeletal: No other, No neck pain, No shoulder pain, No arm pain, No back pain, No hand pain, No leg pain, No foot pain Skin: No Rash, No Lesions, No Jaundice, No Bruising, No Other Objective Vitals Vital Signs Date Time Temp Pulse Resp B/P (MAP) Pulse Ox O2 Delivery O2 Flow Rate FiO2 02/12/25 13:27 65 105/59 02/12/25 13:25 26 95 02/12/25 13:16 Nasal Cannula* 2 28 02/12/25 09:30 99.5 99.5 Intake/Output Intake and Output 02/12/25 07:00 Intake Total 75 ml Balance 75 ml Intake IV Total 75 ml Exam HEENT pupils are reactive Neck is supple CV is S1-S2 regular rate and rhythm Respiratory diminished breath sounds bases GI positive bowel sounds Extremity trace edema WELLNESS NURSE RN no motor deficit Medications Current Medications Medications Dose Ordered Sig/[place] Route Start Time Stop Time Status Last Admin Dose Admin Acetaminophen/ Hydrocodone Bitart 1 tab Q4HP PRN PO 02/11/25 17:15 Ondansetron HCl 4 mg Q4HP PRN IV 02/11/25 17:15 Acetaminophen 650 mg Q6HP PRN PO 02/11/25 17:15 Morphine Sulfate 2 mg Q4HPRN PRN IV 02/11/25 17:15 Nitroglycerin 0.4 mg Q5MINP PRN SL 02/11/25 17:15 Morphine Sulfate 2 mg Q30M PRN IV 02/11/25 17:15 Metoprolol Tartrate 25 mg BID PO 02/11/25 22:00 02/12/25 11:43 25 MG Piperacillin Sod/ Tazobactam Sod 100 ml @ 25 mls/hr Q8HR IV 02/12/25 00:00 02/12/25 14:00 25 MLS/HR Albuterol 2.5 mg Q4HWA [facility] 02/11/25 18:00 02/12/25 13:16 2.5 MG Ipratropium [place] 0.5 mg Q4HWA [facility] 02/11/25 18:00 02/12/25 13:16 0.5 MG Furosemide 20 mg BIDD IV 02/11/25 18:00 02/12/25 06:39 20 MG Enoxaparin Sodium 60 mg DAILY SC 02/13/25 10:00 Laboratory Results Laboratory Tests 02/12/25 07:03 Chemistry Test 02/12/25 07:03 Albumin 4.3 g/dL (3.2-4.8) Calcium Level 8.7 mg/dL (8.7-10.4) Total Protein 6.8 g/dL (5.7-8.2) LFT Test 02/12/25 07:03 Alanine Aminotransferase (ALT) 50 U/L (7-40) H Alkaline Phosphatase 59 U/L (46-116) Aspartate Amino Transferase (AST) 46 U/L (13-40) H Total Bilirubin 0.5 mg/dL (0.2-1.0) Urinalysis Test 02/11/25 10:31 Urine Color Yellow (Yellow) Urine Clarity Clear (Clear) Urine pH 5.5 (5.0-9.0) Urine Specific [place] 1.026 (1.001-1.035) Urine Protein Trace (Negative) H Urine Ketones Negative (Negative) Urine Blood Negative /uL (Negative) Urine Nitrite Negative (Negative) Urine Bilirubin Negative (Negative) Urine Urobilinogen Normal mg/dL (Negative) Urine Leukocyte Esterase Negative /uL (Negative) Urine RBC 1 /hpf (0 - 4) Urine Microscopic WBC 2 /HPF (0-5) Urine Squamous Epithelial Cells Few /hpf (<5) Urine Bacteria None seen /hpf (None Seen) Urine Hyaline Casts Few /lpf (0 - 2) Urine Mucus Few (None Seen) Urine Glucose Normal mg/dL (Normal) Assessment/Plan Assessment/Plan 74-year-old female with a known history of COPD, congestive heart failure with diastolic dysfunction, chronic respiratory failure on home O2, hypertrophic obstructive cardiomyopathy, GERD, peripheral neuropathy who initially presented to the hospital with the increasing shortness a breath found to have 1. AFib with RVR 2. Acute on chronic hypoxic respiratory failure secondary to acute CHF exacerbation 3. Acute CHF exacerbation with diastolic dysfunction 4. Acute COPD exacerbation 5. Leukocytosis Continue med nebs, IV diuretics, 2D echo cardiology consultation, titrate amiodarone drip. Therapeutic Lovenox for primary prevention of stroke. Plan discussed with: Patient My Orders Orders - NATHALIA VALDEZ MD Procedure Category Date Status Time Admit ADMIT 02/11/25 Transmitted 17:06 Code Status CODE 02/11/25 Transmitted 17:06 2 Gm Sodium Diet DIET 02/11/25 Transmitted Dinner Hydrocodone-Acet PHA 02/11/25 In Process 5/325mg Tab ([place] 17:15 Ondansetron Hcl PHA 02/11/25 In Process (Zofran) 17:15 Fall Risk Precautions WHIT 02/11/[address] 17:06 Pt Request For Service PT 02/11/25 Logged 17:06 Condition: Stable WHIT 02/11/25 In Process 17:06 Acetaminophen Tablet PHA 02/11/25 In Process (Tylenol Tablet) 17:15 Morphine Sulfate PHA 02/11/25 In Process Injection 17:15 Nitroglycerin PHA 02/11/25 In Process Sublingual (Ntrostat 17:15 Morphine Sulfate PHA 02/11/25 In Process Injection 17:15 Stat Ekg For Chest WHIT 02/11/25 In Process Pain 17:06 Notify Md Of Changes WHIT 02/11/25 In Process From Base 17:06 Wood Shingle Roofer For WHIT 02/11/25 In Process 24 Hours 17:06 Emergency Dysrhythmia WHIT 02/11/25 In Process Protocol 17:06 Rhythm Strips Once WHIT 02/11/25 In Process Every Shift 17:06 Oxygen By Nasal RT 02/11/25 Transmitted Cannula 17:06 Metoprolol Tartrate PHA 02/11/25 In Process Tablet (Lopressor Ta 22:00 Albuterol Medneb PHA 02/11/25 In Process (Ventolin Medneb) 18:00 Ipratropium Medneb PHA 02/11/25 In Process (Atrovent Medneb) 18:00 Furosemide Injection PHA 02/11/25 In Process (Lasix Injection) 18:00 Piperacillin-Tazob PHA 02/12/25 In Process 3.375gm (Zosyn 3.375g 00:00 Echo 2d Mode Cardiac US 02/12/25 Resulted DOP 17:06 Enoxaparin Sodium PHA 02/13/25 In Process (Lovenox) 10:00 Date of Service: Feb 12, 2025 Billing Provider: NATHALIA VALDEZ MD Common Visit Codes: NOT BILLABLE NATHALIA VALDEZ MD Feb 12, 2025 17:02
--- NOTE | 2025-02-12 20:42 | DVHPN2 ---
Progress Note - Dictate Date Seen: Feb 12, 2025 Medical Necessity Reason Pt with a Central, PICC or Fol: No Subjective Patient seen and examined at bedside. Remains on supplemental oxygen Overnight events reviewed. vital signs Vital Sign Date Time Temp Pulse Resp B/P (MAP) Pulse Ox O2 Delivery O2 Flow Rate FiO2 02/12/25 20:00 86 02/12/25 18:30 18 99 02/12/25 18:30 98.2 127/62 (83) 98.2 02/12/25 18:24 Nasal Cannula 2.0 02/12/25 18:24 28 Total Intake and Output 02/11/25 02/11/25 02/12/25 15:00 23:00 07:00 Intake Total 75 ml Balance 75 ml medications Current Medications Medications Dose Ordered Sig/Diamond Route Start Time Stop Time Status Last Admin Dose Admin Acetaminophen/ Hydrocodone Bitart 1 tab Q4HP PRN PO 02/11/25 17:15 Ondansetron HCl 4 mg Q4HP PRN IV 02/11/25 17:15 Acetaminophen 650 mg Q6HP PRN PO 02/11/25 17:15 Morphine Sulfate 2 mg Q4HPRN PRN IV 02/11/25 17:15 Nitroglycerin 0.4 mg Q5MINP PRN SL 02/11/25 17:15 Morphine Sulfate 2 mg Q30M PRN IV 02/11/25 17:15 Metoprolol Tartrate 25 mg BID PO 02/11/25 22:00 02/12/25 11:43 25 MG Piperacillin Sod/ Tazobactam Sod 100 ml @ 25 mls/hr Q8HR IV 02/12/25 00:00 02/12/25 14:00 25 MLS/HR Albuterol 2.5 mg Q4HWA NEB 02/11/25 18:00 02/12/25 18:24 2.5 MG Ipratropium [place] 0.5 mg Q4HWA [facility] 02/11/25 18:00 02/12/25 18:24 0.5 MG Furosemide 20 mg BIDD IV 02/11/25 18:00 02/12/25 18:00 20 MG Enoxaparin Sodium 60 mg DAILY SC 02/13/25 10:00 Docusate Sodium 100 mg BID PO 02/12/25 22:00 objective Gen.: Patient lying in bed in no apparent distress. On supplemental oxygen. Head: Normocephalic, atraumatic. Eyes: EOMI/PERRLA. Ears: Normal hearing. Normal anatomy. Neck/trachea: Trachea midline, supple. Nose: Normal external anatomy. Mouth: Moist mucous membranes. Chest: Decreased air entry bilaterally. No wheezing or rhonchi. Cardiovascular: Positive S1, positive S2. Regular rate and rhythm. Abdomen: Positive bowel sounds in all 4 quadrants. Soft, non-tender, non- distended. : Deferred. Rectal: Deferred. Skin: Warm, dry. Intact. Extremities: 2+ radial pulses bilaterally. No lower extremity edema. Neuro: Awake, alert, oriented x3. No gross motor or sensory deficits. Cranial nerves II through XII intact. Gait not assessed laboratory and microbiology Laboratory Tests 02/12/25 07:03 Test 02/12/25 07:03 Range/Units Serum Glucose 148 H 74-106 mg/dL Assessment/Plan Impression: Acute on chronic hypoxic respiratory failure Acute COPD exacerbation Acute CHF exacerbation Pleural effusion, right Atelectasis Pulmonary vascular congestion Leukocytosis Events: Remains on supplemental oxygen, 3 LPM NC Taper O2 as tolerated Continue antibiotics Incentive spirometry Continue bronchodilators Pain control Avoid oversedation Continue therapeutic Lovenox Continue diuresis w/ Lasix Monitor renal function. Monitor electrolytes. Supplement as necessary. Monitor ins and outs Labs and imaging reviewed. Rest of plan as noted below. Plan: Supplemental oxygen Titrate to keep O2 sats above 92%. CXR demonstrated small right pleural effusion. Cardiomegaly with pulmonary vascular congestion. Continue bronchodilators. Continue antibiotics Monitor WBC Incentive spirometry for atelectasis Follow up Cardiology recommendations Blood pressure control Maintain euvolemia Monitor renal function. Monitor electrolytes. Supplement as necessary. Monitor ins and outs. DVT prophylaxis - Lovenox SC. Prognosis: Poor given patient's multiple co-morbidities. Rest of plan per hospitalist and other consultants. Thank you, Dr. De La Fuente, for allowing me to participate in this patient's care. Further recommendations will depend on the patient's clinical course. Please do not hesitate to contact me if you have any questions or concerns. This medical document was created using an electronic medical record system with [employer] system. Although these documentations are being carefully reviewed, there may still be some phonetic and typographical changes. The errors are purely typographical, due to imperfection on the software program, and do not reflect any compromise in the patient's medical care. Plan discussed with: Patient, Other (RN) PAPO PALOMINO MD Feb 12, 2025 20:42
[2025-02-12] MEDS: DOCUSATE SOD 100 MG CAP PO SCH (22:30)
[2025-02-13] VITALS (9 sets, daily range): BP systolic 117; BP diastolic 60; PULSE 80–95; RESP 18–25; TEMP 98.1; O2SAT 96–100
[2025-02-13] MEDS: ENOXAPARIN SOD 60 MG/0.6 ML SYRINGE SC SCH (10:24)
[2025-02-13] MEDS: SODIUM ZIRCONIUM CYCL 10 GM PAK PO ONE (11:42)
--- NOTE | 2025-02-13 11:47 | ECG ---
[facility] Test Date: 2025-02-11 Test Time: 09:34:50 Pat Name: NEFTALI COYNE Department: Room: [address] [place] [address] A Gender: F Produce Wrapper: KETAN : 1950 Requested By: REECE MAHARAJ Order Number: [id number] Reading MD: Lemuel Tilley Measurements Intervals [place] Rate: 108 P: 0 VA: 0 QRS: 93 QRSD: 116 T: 3 QT: 363 QTc: 487 Interpretive Statements Atrial fibrillation Ventricular premature complex Nonspecific intraventricular conduction delay Electronically Signed On 02-13-2025 17:00:51 PDT by Lemuel Tilley Please click the below link to view image of tracing.
[2025-02-13] MEDS ORDERED: AUG875T PO (13:28)
[2025-02-13] MEDS ORDERED: MET25T PO (13:28)
[2025-02-13] MEDS ORDERED: APIX5TAB PO (13:28)
--- NOTE | 2025-02-13 13:30 | DVHDS2 ---
Discharge Summary Date of Admission Feb 11, 2025 at 17:06 Date of Discharge: Feb 13, 2025 Labs/Diagnostic Data: Laboratory Results Test 02/13/25 11:05 02/12/25 07:03 02/11/25 16:20 02/11/25 11:23 Creatinine 0.80 mg/dL (0.550-1.02) Glomerular Filtration Rate Calc 78 mL/min (>90) White Blood Count 23.4 10^3/uL (4.4-10.8) Red Blood Count 4.66 10^6/uL (4.0-5.20) Hemoglobin 13.9 g/dL (12.2-16.2) Hematocrit 43.7 % (36.0-46.0) Mean Corpuscular Volume 93.6 fL (80.0-100.0) Mean Corpuscular Hemoglobin 29.8 pg (28.0-32.0) Mean Corpuscular Hemoglobin Concent 31.9 g/dL (32.0-36.0) Red Cell Distribution Width 16.3 % (11.8-14.3) Platelet Count 181 10^3/uL (140-450) Mean Platelet Volume 10.5 fL (6.9-10.8) Neutrophils (%) (Auto) 87.2 % (37.0-80.0) Lymphocytes (%) (Auto) 3.5 % (10.0-50.0) Monocytes (%) (Auto) 8.1 % (0.0-12.0) Eosinophils (%) (Auto) 0.0 % (0.0-7.0) Basophils (%) (Auto) 1.2 % (0.0-2.0) Neutrophils # (Auto) 20.4 10 ^3/uL (1.6-8.6) Lymphocytes # (Auto) 0.8 10 ^3/uL (0.4-5.4) Monocytes # (Auto) 1.9 10 ^3/uL (0-1.3) Eosinophils # (Auto) 0 10 ^3/uL (0-0.8) Basophils # (Auto) 0.3 10 ^3/uL (0-0.2) Nucleated Red Blood Cells 0.1 % Sodium Level 138 mmol/L (136-145) Potassium Level 5.4 mmol/L (3.5-5.1) Chloride Level 107 mmol/L (98-107) Carbon Dioxide Level 21 mmol/L (20-31) Anion Gap 10 (5-15) Blood Urea Nitrogen 19 mg/dL (9-23) BUN/Creatinine Ratio 14.4 (10.0-20.0) Serum Glucose 148 mg/dL (74-106) Calcium Level 8.7 mg/dL (8.7-10.4) Total Bilirubin 0.5 mg/dL (0.2-1.0) Aspartate Amino Transferase (AST) 46 U/L (13-40) Alanine Aminotransferase (ALT) 50 U/L (7-40) Alkaline Phosphatase 59 U/L (46-116) Total Protein 6.8 g/dL (5.7-8.2) Albumin 4.3 g/dL (3.2-4.8) Blood Gas Specimen Type Arterial Blood Gas Sample Site Right radial Blood Gas Patient Temperature 37.0 Arterial Blood Date Drawn [id number] Arterial Blood pH 7.333 (7.350-7.450) Arterial Blood Partial Pressure CO2 28.7 mmHg (32.0-45.0) Arterial Blood Partial Pressure O2 133.2 mmHg (83.0-108.0) Arterial Blood HCO3 14.9 mmol/L (21.0-28.0) Arterial Blood Oxygen Saturation 99.0 % (94.0-98.0) Arterial Blood Base Excess -9.5 mmol/L (-2.0-3.0) Arterial Blood Oxyhemoglobin 97.6 % (94.0-98.0) Arterial Blood Carboxyhemoglobin 1.1 % (0.5-1.5) Arterial Blood Methemoglobin 0.3 % (0.0-1.5) Vince Test Yes Blood Gas Total Hemoglobin 13.80 g/dL (12.0-16.0) Blood Gas Liter Flow 6.00 Blood Gas Modality Nasal cannula FiO2 % 44.0 B-Type Natriuretic Peptide 521.10 pg/mL (0-100) Test 02/11/25 10:55 02/11/25 10:31 Influenza Type A Antigen Negative (Negative) Influenza Type B Antigen Negative (Negative) SARS-CoV-2 Antigen (Rapid) Negative (NEGATIVE) Urine Color Yellow (Yellow) Urine Clarity Clear (Clear) Urine pH 5.5 (5.0-9.0) Urine Specific [place] 1.026 (1.001-1.035) Urine Protein Trace (Negative) Urine Ketones Negative (Negative) Urine Blood Negative /uL (Negative) Urine Nitrite Negative (Negative) Urine Bilirubin Negative (Negative) Urine Urobilinogen Normal mg/dL (Negative) Urine Leukocyte Esterase Negative /uL (Negative) Urine RBC 1 /hpf (0 - 4) Urine Microscopic WBC 2 /HPF (0-5) Urine Squamous Epithelial Cells Few /hpf (<5) Urine Bacteria None seen /hpf (None Seen) Urine Hyaline Casts Few /lpf (0 - 2) Urine Mucus Few (None Seen) Urine Glucose Normal mg/dL (Normal) Other Laboratory Tests 02/13/25 11:05 02/12/25 07:03 Brief Hx & Hospital Course: Skilled female with a known history of chronic respiratory failure on home O2, COPD, congestive heart failure with diastolic dysfunction presented to the hospital with the increasing shortness a breath found to have acute on chronic hypoxic respiratory failure secondary to acute COPD exacerbation, acute CHF exacerbation with diastolic dysfunction. Patient also went into AFib with RVR requiring IV amiodarone drip. Which was switched to beta funmilayo. Cardiology was consulted who recommended anticoagulation for long-term for primary prevention of stroke. Patient was explained the risk/benefit/alternatives including life-threatening bleeding disability explained to the patient in detail, patient understand verbalized understanding and agreeable to plan. Patient is being discharged under stable condition with the home health home safety evaluation. Condition at Discharge: Stable Final Diagnosis/Problems List Acute on chronic respiratory failure with hypoxia Acute chronic COPD exacerbation Acute CHF exacerbation A fib RVR Leukocytosis likely reactive secondary to Solu-Medrol Discharge Disposition: Home with Health Services SNF Discharge Will this Physician continue t: No Discharge Instruct/Medications Diet: Cardiac 2g Na,low cholest Activity: No Restrictions, As Tolerated Follow Up/Referral: Follow up with the PCP in one week Follow up with Dr. Delgado in one week Medications: As prescribed and reconciled. New Medications: Amoxicillin & Pot Clavulanate (Augmentin Tablet) 875 Mg Tb 875 MG PO BID for 7 Days, #14 TAB Apixaban Base (Eliquis) 5 Mg Tab 5 MG PO BIDPC, #60 TAB Metoprolol Tartrate (Lopressor) 25 Mg Tb 25 MG PO BID for 30 Days, #60 TAB Continued Medications: Acetaminophen (Tylenol 8 Hour Arthritis) 650 Mg Tab 1300 MG PO DAILY for ATHRITIS, TAB Amlodipine Besylate (Amlodipine Besylate) 5 Mg Tab 5 MG PO DAILY for HTN, MG Celecoxib (Celebrex) 100 Mg Cap 100 MG PO DAILY for PAIN, MG Cholecalciferol (Vitamin D3) 1,000 Unit Chw 1000 UNIT PO DAILY for SUPPLEMENT, TAB.CHEW Disopyramide Phosphate (Disopyramide Phosphate) 100 Mg Cap 100 MG PO DAILY for ARRYTHMIA, CAP Gabapentin (Gabapentin) 100 Mg Cap 100 MG PO BID for NEUROPATHY, MG Losartan Potassium (Losartan Potassium) 25 Mg Tab 25 MG PO DAILY for HTN for 30 Days, MG Omeprazole Magnesium (Omeprazole) 20 Mg Tab 40 MG PO DAILY for GERD, TAB Oxybutynin Chloride (Ditropan Xl) 10 Mg Tab 10 MG PO DAILY for HYPERACTIVE BLADDER, TAB Patients Own Medication (Patients Own Medication) . for ALLERGIES PTS OWN MED-OBTAIN FROM PT AND SEND TO RX DRUG: FREQ: RX# EXP: DATE DISP: TECH: RPH: Patients Own Medication (Patients Own Medication) . PTS OWN MED-OBTAIN FROM PT AND SEND TO RX DRUG: FREQ: RX# EXP: DATE DISP: TECH: RPH: Discontinued Medications: Metoprolol Tartrate (Metoprolol Tartrate) 25 Mg Tab 25 MG PO DAILY for HTN for 30 Days, MG Scheduled Acetaminophen (Tylenol 8 Hour Arthritis), 1,300 MG PO DAILY, (Reported) Amlodipine Besylate (Amlodipine Besylate), 5 MG PO DAILY, (Reported) Amoxicillin & Pot Clavulanate (Augmentin Tablet), 875 MG PO BID Apixaban Base (Eliquis), 5 MG PO BIDPC Celecoxib (Celebrex), 100 MG PO DAILY, (Reported) Cholecalciferol (Vitamin D3), 1,000 UNIT PO DAILY, (Reported) Disopyramide Phosphate (Disopyramide Phosphate), 100 MG PO DAILY, (Reported) Gabapentin (Gabapentin), 100 MG PO BID, (Reported) Losartan Potassium (Losartan Potassium), 25 MG PO DAILY, (Reported) Metoprolol Tartrate (Metoprolol Tartrate), 25 MG PO DAILY, (Reported) Metoprolol Tartrate (Lopressor), 25 MG PO BID Omeprazole Magnesium (Omeprazole), 40 MG PO DAILY, (Reported) Oxybutynin Chloride (Ditropan Xl), 10 MG PO DAILY, (Reported) Miscellaneous Medications Patients Own Medication (Patients Own Medication), (Reported) Patients Own Medication (Patients Own Medication), (Reported) Discharge Statement: "Patient was advised to return to the ER or call 911 if any headaches, dizziness, shortness of breath, chest pain, abdominal pain, bleeding, fevers, or worsening of medical condition. Patient was counseled about treatment plan, medications, possible side effects, patientverbalized understanding. All questions were answered to the best of my ability. This discharge took greater then 30 minutes in planning, reviewing documentation, counseling the patient, and discussing with other team members." ASSESSMENT ASSESSMENT Assessment Acute on chronic respiratory failure with hypoxia Acute chronic COPD exacerbation Acute CHF exacerbation A fib RVR Leukocytosis likely reactive secondary to Solu-Medrol Date of Service: Feb 13, 2025 Billing Provider: NATHALIA VALDEZ MD Common Visit Codes: NOT BILLABLE NATHALIA VALDEZ MD Feb 13, 2025 13:30
[2025-02-13] MEDS ORDERED: APIXABAN 5 MG TAB PO SCH (19:00)
--- NOTE | 2025-02-13 19:44 | DVHPN2 ---
Progress Note - Dictate Date Seen: Feb 13, 2025 Medical Necessity Reason Pt with a Central, PICC or Fol: No vital signs Vital Sign Date Time Temp Pulse Resp B/P (MAP) Pulse Ox O2 Delivery O2 Flow Rate FiO2 02/13/25 14:20 81 18 100 02/13/25 13:00 117/60 (79) 02/13/25 08:01 98.1 98.1 02/13/25 08:00 Nasal Cannula* 2 28 Total Intake and Output 02/12/25 02/12/25 02/13/25 14:59 22:59 06:59 Intake Total 100 ml 100 ml Balance 100 ml 100 ml medications Current Medications Medications Dose Ordered Sig/Diamond Route Start Time Stop Time Status Last Admin Dose Admin Acetaminophen/ Hydrocodone Bitart 1 tab Q4HP PRN PO 02/11/25 17:15 Ondansetron HCl 4 mg Q4HP PRN IV 02/11/25 17:15 Acetaminophen 650 mg Q6HP PRN PO 02/11/25 17:15 Morphine Sulfate 2 mg Q4HPRN PRN IV 02/11/25 17:15 Nitroglycerin 0.4 mg Q5MINP PRN SL 02/11/25 17:15 Morphine Sulfate 2 mg Q30M PRN IV 02/11/25 17:15 Metoprolol Tartrate 25 mg BID PO 02/11/25 22:00 02/13/25 10:24 25 MG Piperacillin Sod/ Tazobactam Sod 100 ml @ 25 mls/hr Q8HR IV 02/12/25 00:00 02/13/25 05:58 25 MLS/HR Albuterol 2.5 mg Q4HWA NEB 02/11/25 18:00 02/13/25 07:29 2.5 MG Ipratropium [place] 0.5 mg Q4HWA NEB 02/11/25 18:00 02/13/25 07:30 0.5 MG Furosemide 20 mg BIDD IV 02/11/25 18:00 02/13/25 05:58 20 MG Docusate Sodium 100 mg BID PO 02/12/25 22:00 02/13/25 10:24 100 MG Apixaban 5 mg BIDPC PO 02/13/25 19:00 laboratory and microbiology Laboratory Tests 02/13/25 11:05 02/12/25 07:03 Test 02/12/25 07:03 Range/Units Serum Glucose 148 H 74-106 mg/dL Assessment/Plan Impression Acute hypoxemic respiratory failure Acute COPD exacerbation Right pleural effusions Afib with RVR Patient seen and examined Events Low oxygen requirements On 2 liters nasal cannula No acute events Labs and imaging reviewed Management Supplemental oxygen Titrate to maintain sats 90% or above Incentive spirometry Antibiotics Bronchodilators Diurese Monitor renal function Monitor electrolytes Supplement as needed F/u cardiology Okay to discharge from pulmonary standpoint DVT prophylaxis Plan discussed with: Patient ELI JOHNSTON MD Feb 13, 2025 19:44
--- NOTE | 2025-02-17 16:01 | CODING ---
Date of Service: Feb 11, 2025 Billing Provider: PAPO PALOMINO MD Common Visit Codes: [id number] INP/OBS CARE (HIGH) PAPO PALOMINO MD Feb 17, 2025 16:01
--- NOTE | 2025-02-17 16:02 | CODING ---
Date of Service: Feb 12, 2025 Billing Provider: PAPO PALOMINO MD Common Visit Codes: [id number] INP/OBS CARE(HIGH) PAPO PALOMINO MD Feb 17, 2025 16:02
== END 2025-02-13 15:24 | disposition home health service (06) | DRG 189 ==
LOC: ER 09:32 → EDBD 09:32 → OVERFLOW 17:06
PROVIDERS: ADMIT Internal Medicine; ATTEND Internal Medicine
PROC: 5A09357 Assistance with Respiratory Ventilation, Less than 24 Consecutive Hours, Continuous Positive Airway Pressure (ICD-10-PCS; principal; 2025-02-12)
DX: J96.21 Acute and chronic respiratory failure with hypoxia (principal); I50.33 Acute on chronic diastolic (congestive) heart failure; J44.1 Chronic obstructive pulmonary disease with (acute) exacerbation; J98.11 Atelectasis; I42.1 Obstructive hypertrophic cardiomyopathy; I11.0 Hypertensive heart disease with heart failure; Z99.81 Dependence on supplemental oxygen; Z20.822 Contact with and (suspected) exposure to COVID-19; K21.9 Gastro-esophageal reflux disease without esophagitis; G62.9 Polyneuropathy, unspecified; I48.91 Unspecified atrial fibrillation; D72.829 Elevated white blood cell count, unspecified; T38.0X5A Adverse effect of glucocorticoids and synthetic analogues, initial encounter; Z79.01 Long term (current) use of anticoagulants; Z90.710 Acquired absence of both cervix and uterus; Y92.89 Other specified places as the place of occurrence of the external cause
CPT/HCPCS: 36415; 36600; 71046; 80048; 80053; 81001; 82565; 82805; 83880; 85025; 87040; 87426; 87804; 93005; 93306; 94640; 94644; 94660; 96365; 96375; 97163; 99291; G0378; J2543